=== PATIENT | female | born 1970 ===

== ENCOUNTER 2017-10-08 12:30 | Inpatient (IN) | payer MEDICAID, OTHER ==
[2017-10-08 13:16] VITALS: BMI 24.5
--- NOTE | 2017-10-08 13:18 | ED PDOC ---
HPI: General Adult Time Seen by Provider: 10/08/17 12:56 History Per: Patient History/Exam Limitations: no limitations Onset/Duration Of Symptoms: Days (x 14) Additional Complaint(s): Soledad Dalton is a 47 y/o female with history of HIV and unknown CD4C, who was sent by a mental health case manager from [facility] to this ED for evaluation of lab abnormalities after she has been discharge from there with pneumonia 2 weeks ago. Patient offers no medical complaints at this time. PMD: Dr. Wright Past Medical History Reviewed: Historical Data, Nursing Documentation, Vital Signs Vital Signs: Last Vital Signs Temp 98.2 F 10/11/17 08:31 Pulse 79 10/11/17 08:31 Resp 20 10/11/17 08:31 BP 114/68 10/11/17 08:31 Pulse Ox 99 10/11/17 08:31 - Medical History PMH: HIV, Pneumonia Other PMH: unknown CD4C - Surgical History Surgical History: No Surg Hx - Family History Family History: States: Unknown Family Hx - Social History Current smoker - smoking cessation education provided: No Alcohol: None Drugs: Denies - Home Medications Home Medications: Ambulatory Orders Medication Instructions Recorded levETIRAcetam [Keppra] 500 mg PO Q12 10/08/17 - Allergies Allergies/Adverse Reactions: Allergies Allergy/AdvReac Type Severity Reaction Status Date / Time No Known Allergies Allergy Verified 10/08/17 13:15 Review of Systems ROS Statement: Except As Marked, All Systems Reviewed And Found Negative Respiratory: Positive for: Cough (minimal) Physical Exam - Reviewed Nursing Documentation Reviewed: Yes Vital Signs Reviewed: Yes - Physical Exam Appears: Positive for: Non-toxic, No Acute Distress Head Exam: Positive for: ATRAUMATIC, NORMOCEPHALIC Skin: Positive for: Normal Color, Warm, Dry Eye Exam: Positive for: Normal appearance, EOMI, PERRL ENT: Positive for: Normal ENT Inspection Neck: Positive for: Normal, Supple Cardiovascular/Chest: Positive for: Regular Rate, Rhythm Respiratory: Positive for: Normal Breath Sounds. Negative for: Respiratory Distress Gastrointestinal/Abdominal: Positive for: Normal Exam, Soft. Negative for: Tenderness Back: Positive for: Normal Inspection. Negative for: L CVA Tenderness, R CVA Tenderness Extremity: Positive for: Normal ROM Neurologic/Psych: Positive for: Alert, Oriented - Laboratory Results Result Diagrams: 10/11/17 05:55 10/11/17 05:55 - Physician Consult Information Time Consulting Physican Contacted: 13:14 Physician Contacted: Matthieu Atkinson Outcome Of Conversation: Recommends acid-fast culture X 3, stool culture and Rifabutin, Doxycycline and Ethambutol. Medical Decision Making Medical Decision Making: Time: 1316 Initial Impression: MAC Initial Plan: --VBG Shock Panel --EKG --CMP --Urine --Urine dipstick --CBC --PTT --Prothrombin Time --Chest Portable (RAD) --Mycobacteria, PCR, RESP --Mycobacterium Blood Culture --Myambutol 900 mg PO --Mycobutin 300 mg PO --Blood Culture --Stool Culture --Urine Culture --Urinalysis Time: 1337 Patient is admitted to floor. Scribe Attestation: Documented by Alannah Christensen, acting as a scribe for Radha Contreras MD Provider Scribe Attestation: All medical record entries made by the Scribe were at my direction and personally dictated by me. I have reviewed the chart and agree that the record accurately reflects my personal performance of the history, physical exam, medical decision making, and the department course for this patient. I have also personally directed, reviewed, and agree with the discharge instructions and disposition. Disposition - Clinical Impression Clinical Impression: Mycobacterium avium complex, HIV (human immunodeficiency virus infection) - Disposition Disposition Time: 13:37 Condition: STABLE - Pt Status Changed To: Hospital Disposition Of: Inpatient - Admit Certification Admit to Inpatient:: After my assessment, the patient will require hospitalization for at least two midnights. This is because of the severity of symptoms shown, intensity of services needed, and/or the medical risk in this patient being treated as an outpatient. - POA Present On Arrival: None
[2017-10-08 14:31] LABS: BASO # 0.1 K/uL (0.0-0.2); BASO % 1.4 % (0.0-2.0); EOS % 0.5 % (0.0-4.0); HEMOGLOBIN 8.6 g/dL (12.0-16.0); LYMPH # 1.2 K/uL (1.0-4.3); LYMPH % 28.4 % (20.0-40.0); MEAN CELL VOLUME 86.1 fl (81.0-99.0); MEAN CORPUSCULAR HEMOGLOBIN 27.3 pg (27.0-31.0); MEAN CORPUSCULAR HGB CONC 31.7 g/dL (33.0-37.0); MEAN PLATELET VOLUME 8.1 fl (7.2-11.7); MONO # 0.5 K/uL (0.0-0.8); NEUT # 2.3 K/uL (1.8-7.0); NEUT % 56.7 % (50.0-75.0); NRBC % 0.1 % (0.0-0.0); RBC 3.16 Mil/uL (3.80-5.20); RED CELL DISTRIBUTION WIDTH 20.8 % (11.5-14.5); WHITE BLOOD COUNT 4.1 K/uL (4.8-10.8)
[2017-10-08 14:41] LABS: INR 1.1 (0.9-1.2); PROTHROMBIN TIME 12.7 Seconds (9.8-13.1)
[2017-10-08 14:42] LABS: ALB/GLOB RATIO 0.9 (1.0-2.1); ALBUMIN 3.1 g/dL (3.5-5.0); ALT/SGPT 25 U/L (9-52); AST/SGOT 27 U/L (14-36); BLOOD UREA NITROGEN 9 mg/dl (7-17); CALCIUM 8.6 mg/dL (8.4-10.2); GFR AFRICAN-AMERICAN > 60; GFR NON-AFRICAN AMERICAN > 60
[2017-10-08 15:46] LABS: VENOUS BLOOD GAS BASE EXCESS 5.6 mmol/L (0.0-2.0); VENOUS BLOOD GAS PCO2 45 mmHg (40-60); VENOUS BLOOD GAS PO2 42 mm/Hg (30-55); VENOUS BLOOD PH 7.44 (7.32-7.43)
--- NOTE | 2017-10-08 15:48 | CP.PCM.HP ---
History of Present Illness - History of Present Illness History of Present Illness: 47 y/o female with history of HIV and stroke, unknown CD4 count was sent by a machine adjuster leader case trim from [facility] to us for evaluation of lab abnormalities after she has been discharge from there with pneumonia 2 weeks ago. Patient reports feeling better but still c/o wet cough and sputum production sometimes white/yellow in color. Patient also reports she had an stroke 3 months ago with complete resolutions of symptoms. Associated weight loss in the last month (pt can't said how many pounds she lost) also c/o anorexia for the last 2 weeks. Otherwise she denies sob, hemoptysis, wheezing, chest pain, palpitations, rashes , abdominal pain, constipation or diarrhea, no headache, seizures, blurred vision. No urinary symptoms. Patient was diagnosed with HIV 15 years ago and have been off treatment for more than 4 years due to insurance issues. Patient reports that recently she got the [place] emergency department and is scheduled for her first visit at [facility]. PMD: none at this time PMH: stroke 3months ago, HIV FMH: denies PSH: Meds: keppra 500 mg BID NKDA SH: denies smoking, etoh, drugs live with her son in an apt ED course: VS: T98.5, BP 127/74, HR 96, RR 18 sat 99% RA. PE: Resp: cta, CVS: RRR, + s1 s2, ABD: soft no tender Labs: CBC: 4.1<8.6/27.2>525, CMP: wnl, PT/INR 12.7/1.1, lactate 1.0 Meds: Rifabutin, Doxycycline and Ethambutol once Present on Admission - Present on Admission Any Indicators Present on Admission: No Review of Systems - Review of Systems All systems: reviewed and no additional remarkable complaints except (HPI) Past Patient History - Past Social History Alcohol: None Drugs: Denies - CARDIAC Hx Cardiac Disorders: No - PULMONARY Hx Pneumonia: Yes - NEUROLOGICAL HX Cerebrovascular Accident: Yes Hx Seizures: Yes - RENAL Hx Chronic Kidney Disease: No - ENDOCRINE/METABOLIC Hx Endocrine Disorders: No - HEMATOLOGICAL/ONCOLOGICAL Hx Human Immunodeficiency Virus (HIV): Yes - INTEGUMENTARY Hx Dermatological Problems: No - MUSCULOSKELETAL/RHEUMATOLOGICAL Hx Musculoskeletal Disorders: No - GASTROINTESTINAL Hx Gastrointestinal Disorders: No - GENITOURINARY/GYNECOLOGICAL Hx Genitourinary Disorders: No - PSYCHIATRIC Hx Psychophysiologic Disorder: No Hx Substance Use: No - SURGICAL HISTORY Hx Surgeries: No - ANESTHESIA Hx Anesthesia: No Hx Anesthesia Reactions: No Hx Malignant Hyperthermia: No Meds Allergies/Adverse Reactions: Allergies Allergy/AdvReac Type Severity Reaction Status Date / Time No Known Allergies Allergy Verified 10/08/17 13:15 Physical Exam - Constitutional Appears: No Acute Distress, Older Than Stated Age - Head Exam Head Exam: NORMAL INSPECTION - Eye Exam Eye Exam: EOMI, PERRL - Respiratory Exam Respiratory Exam: Clear to Auscultation Bilateral, NORMAL BREATHING PATTERN. absent: Rales, Wheezes - Cardiovascular Exam Cardiovascular Exam: REGULAR RHYTHM, +S1, +S2. absent: Tachycardia - GI/Abdominal Exam GI & Abdominal Exam: Normal Bowel Sounds, Soft. absent: Distended, Tenderness - Extremities Exam Extremities exam: Negative for: calf tenderness - Neurological Exam Neurological exam: Alert, CN II-XII Intact, Oriented x3 - Psychiatric Exam Psychiatric exam: Normal Mood - Skin Skin Exam: Dry, Warm Results - Vital Signs Recent Vital Signs: Last Vital Signs Temp 98.5 F 10/08/17 13:12 Pulse 96 H 10/08/17 13:12 Resp 18 10/08/17 13:12 BP 127/74 10/08/17 13:12 Pulse Ox 99 10/08/17 13:12 - Labs Result Diagrams: 10/08/17 14:15 10/08/17 14:15 Labs: Laboratory Results - last 24 hr 10/08/17 10/08/17 10/08/17 14:15 14:15 14:15 WBC 4.1 L RBC 3.16 L Hgb 8.6 L Hct 27.2 L MCV 86.1 MCH 27.3 MCHC 31.7 L RDW 20.8 H Plt Count 525 H MPV 8.1 Neut % (Auto) 56.7 Lymph % (Auto) 28.4 Graham % (Auto) 13.0 H Eos % (Auto) 0.5 Baso % (Auto) 1.4 Neut # (Auto) 2.3 Lymph # (Auto) 1.2 Graham # (Auto) 0.5 Eos # (Auto) 0.0 Baso # (Auto) 0.1 PT 12.7 INR 1.1 APTT 29.0 pO2 VBG pH VBG pCO2 VBG HCO3 VBG Total CO2 VBG O2 Sat (Calc) VBG Base Excess VBG Potassium Glucose Lactate FiO2 Sodium 144 Potassium 3.8 Chloride 106 Carbon Dioxide 25 Anion Gap 17 BUN 9 Creatinine 0.4 L Est GFR ( Amer) > 60 Est GFR (Non-Af Amer) > 60 Random Glucose 101 Calcium 8.6 Total Bilirubin 0.4 AST 27 ALT 25 Alkaline Phosphatase 73 Total Protein 6.3 Albumin 3.1 L Globulin 3.2 Albumin/Globulin Ratio 0.9 L Venous Blood Potassium 10/08/17 15:37 WBC RBC Hgb Hct MCV MCH MCHC RDW Plt Count MPV Neut % (Auto) Lymph % (Auto) Graham % (Auto) Eos % (Auto) Baso % (Auto) Neut # (Auto) Lymph # (Auto) Graham # (Auto) Eos # (Auto) Baso # (Auto) PT INR APTT pO2 42 VBG pH 7.44 H VBG pCO2 45 VBG HCO3 28.8 VBG Total CO2 32.0 H VBG O2 Sat (Calc) 68.9 H VBG Base Excess 5.6 H VBG Potassium 3.6 Glucose 94 Lactate 1.0 FiO2 21.0 Sodium 140.0 Potassium Chloride 109.0 H Carbon Dioxide Anion Gap BUN Creatinine Est GFR ( Amer) Est GFR (Non-Af Amer) Random Glucose Calcium Total Bilirubin AST ALT Alkaline Phosphatase Total Protein Albumin Globulin Albumin/Globulin Ratio Venous Blood Potassium 3.6 Assessment & Plan - Assessment and Plan (Free Text) Assessment: 47 yo F patient w/ PMH of HIV/AIDS, stroke admitted due to cough, weight loss, anorexia to r/o suspected MAC. Plan: 1- Cough, weight loss, anorexia r/o MAC - Admit to Med/Surg - Isolation - Afebrile, no leukocytosis - CXR: no active lung disease - f/u CD4/viral load - Mycobacteria PCR, CX, stain - F/U blood, urine and stool cx - ID consult placed Dr Atkinson, recs appreciated. - s/p ethambutol 900 mg once rifampin 600 mg once avelox 400 mg once 2- HIV/AIDS - non complaint w/medicines - off medicines for 4 years - f/u CD4/viral load 3-H/O stroke -c/w keppra 500 mg Q12H - Head CT 10/08: cortical loss at solitary gyrus on L frontal lobe reflecting prior local infarct or insult. Remainder brain is normal. 4- DVT prophylaxis - lovenox 40mg SC daily
[2017-10-08 15:51] LABS: SQUAMOUS EPITHIAL 1 /hpf (0-5); URINE BACTERIA RARE (<OCC); URINE BILIRUBIN NEGATIVE (NEGATIVE); URINE BLOOD NEGATIVE (NEGATIVE); URINE CLARITY CLOUDY (Clear); URINE COLOR AMBER (YELLOW); URINE GLUCOSE (UA) NEG (Normal); URINE LEUKOCYTE ESTERASE SMALL Leu/uL (Negative); URINE PROTEIN NEGATIVE (NEGATIVE); URINE UROBILINOGEN 0.2-1.0 mg/dL (0.2-1.0)
--- NOTE | 2017-10-08 16:08 | RAD ---
HISTORY: Cough COMPARISON: No prior. FINDINGS: LUNGS: No active pulmonary disease. PLEURA: No significant pleural effusion identified, no pneumothorax apparent. CARDIOVASCULAR: Normal. OSSEOUS STRUCTURES: No significant abnormalities. VISUALIZED UPPER ABDOMEN: Normal. OTHER FINDINGS: None. IMPRESSION: No active disease.
--- NOTE | 2017-10-08 17:05 | CT ---
PROCEDURE: CT HEAD WITHOUT CONTRAST. HISTORY: previous h/o stroke, brain mass COMPARISON: None available. TECHNIQUE: Axial computed tomography images were obtained through the head/brain without intravenous contrast. Radiation dose: Total exam DLP = 695.62 mGy-cm. This CT exam was performed using one or more of the following dose reduction techniques: Automated exposure control, adjustment of the mA and/or kV according to patient size, and/or use of iterative reconstruction technique. FINDINGS: HEMORRHAGE: No intracranial hemorrhage. BRAIN: Trace cystic encephalomalacia is appreciated at a solitary gyrus the left frontal lobe superolaterally. Remaining villafana-white matter structure is within normal limits in overall density including the cerebellum and brainstem. Consider possible chronic lacune. There is no prior comparison available. Remainder the brain is unremarkable including the midline brain anatomy. No suspicious extra-axial collection identified throughout. Sulci and cisterns are unremarkable appearing. VENTRICLES: Unremarkable. No hydrocephalus. CALVARIUM: Unremarkable. PARANASAL SINUSES: Unremarkable as visualized. No significant inflammatory changes. MASTOID AIR CELLS: Unremarkable as visualized. No inflammatory changes. OTHER FINDINGS: None. IMPRESSION: Minimal lucency includes cortical loss at a solitary gyrus on the left frontal lobe superolaterally history reflecting prior local infarct or other insult. No prior comparison available. Remainder the brain normal. Follow-up CT or MRI are available as clinically warranted. If brain mass is suspected clinically then follow-up MRI without contrast is advised.
--- NOTE | 2017-10-08 19:03 | CP.PCM.PN ---
Subjective - Date & Time of Evaluation Date of Evaluation: 10/08/17 Time of Evaluation: 19:00 - Subjective Subjective: i d note discussed c ER PHYSICIAN,Pharmacy,resident initial orders agreed with medications for mac ordered full consult tomorrow Objective - Vital Signs/Intake and Output Vital Signs (last 24 hours): Temp Pulse Resp BP Pulse Ox 98.4 F 91 H 20 104/69 98 10/08/17 16:53 10/08/17 16:53 10/08/17 17:38 10/08/17 16:53 10/08/17 17:38 - Medications Medications: Current Medications Enoxaparin Sodium (Lovenox) 40 mg SC DAILY [facility] PRN Reason: Protocol Ethambutol HCl (Myambutol) 1,200 mg PO DAILY [facility] PRN Reason: Protocol Levetiracetam (Keppra) 500 mg PO Q12 [facility] Moxifloxacin HCl (Avelox) 400 mg PO DAILY [facility] PRN Reason: Protocol - Labs Labs: 10/08/17 14:15 10/08/17 14:15 PT 12.7 Seconds (9.8-13.1) 10/08/17 14:15 INR 1.1 (0.9-1.2) 10/08/17 14:15 APTT 29.0 Seconds (25.6-37.1) 10/08/17 14:15
[2017-10-09] MEDS: Pneumococcal 23-Valent Vaccine IM ONE ×2 (06:55→12:46)
[2017-10-09 07:17] LABS: BASO # 0.1 K/uL (0.0-0.2); BASO % 2.3 % (0.0-2.0); EOS % 0.6 % (0.0-4.0); HEMOGLOBIN 8.4 g/dL (12.0-16.0); LYMPH # 1.1 K/uL (1.0-4.3); MEAN CELL VOLUME 86.2 fl (81.0-99.0); MEAN CORPUSCULAR HEMOGLOBIN 28.2 pg (27.0-31.0); MEAN CORPUSCULAR HGB CONC 32.7 g/dL (33.0-37.0); MEAN PLATELET VOLUME 8.4 fl (7.2-11.7); MONO # 0.6 K/uL (0.0-0.8); MONO % 14.2 % (0.0-10.0); NEUT # 2.3 K/uL (1.8-7.0); NEUT % 56.9 % (50.0-75.0); NRBC % 0.4 % (0.0-0.0); RBC 2.98 Mil/uL (3.80-5.20); RED CELL DISTRIBUTION WIDTH 20.6 % (11.5-14.5); WHITE BLOOD COUNT 4.1 K/uL (4.8-10.8)
[2017-10-09 07:31] LABS: ALB/GLOB RATIO 0.9 (1.0-2.1); ALBUMIN 2.8 g/dL (3.5-5.0); ALT/SGPT 26 U/L (9-52); AST/SGOT 24 U/L (14-36); BLOOD UREA NITROGEN 8 mg/dl (7-17); CALCIUM 8.3 mg/dL (8.4-10.2); GFR AFRICAN-AMERICAN > 60; GFR NON-AFRICAN AMERICAN > 60; HDL CHOLESTEROL 25 MG/DL (30-70)
[2017-10-09 07:41] LABS: LDL CHOLESTEROL 116 mg/dL (0-129)
[2017-10-09] MEDS: Enoxaparin 40 mg Syringe SC SCH (09:59)
--- NOTE | 2017-10-09 11:02 | CP.PCM.PN ---
Subjective - Date & Time of Evaluation Date of Evaluation: 10/09/17 Time of Evaluation: 08:00 - Subjective Subjective: Patient seen and examined this morning, no acute overnight events, reports feeling better, less cough than yesterday, no sob. Afebrile. Objective - Vital Signs/Intake and Output Vital Signs (last 24 hours): Temp Pulse Resp BP Pulse Ox 98.3 F 74 20 110/68 99 10/09/17 08:17 10/09/17 08:17 10/09/17 08:17 10/09/17 08:17 10/09/17 08:17 - Medications Medications: Current Medications Enoxaparin Sodium (Lovenox) 40 mg SC DAILY [facility] PRN Reason: Protocol Last Admin: 10/09/17 09:59 Dose: 40 mg Ethambutol HCl (Myambutol) 1,200 mg PO DAILY [facility] PRN Reason: Protocol Last Admin: 10/09/17 10:00 Dose: 1,200 mg Ferrous Sulfate (Feosol) 325 mg PO BID [facility] Levetiracetam (Keppra) 500 mg PO Q12 [facility] Last Admin: 10/09/17 10:00 Dose: 500 mg Moxifloxacin HCl (Avelox) 400 mg PO DAILY [facility] PRN Reason: Protocol Last Admin: 10/09/17 10:00 Dose: 400 mg Potassium Chloride (K-Dur 20 Meq Er Tab) 20 meq PO DAILY [facility] Stop: 10/13/17 23:59 Rifabutin (Mycobutin) 150 mg PO BID [facility] PRN Reason: Protocol - Labs Labs: 10/09/17 05:25 10/09/17 05:25 PT 12.7 Seconds (9.8-13.1) 10/08/17 14:15 INR 1.1 (0.9-1.2) 10/08/17 14:15 APTT 29.0 Seconds (25.6-37.1) 10/08/17 14:15 - Constitutional Appears: No Acute Distress - Head Exam Head Exam: NORMAL INSPECTION - Eye Exam Eye Exam: EOMI, PERRL - Respiratory Exam Respiratory Exam: Clear to Ausculation Bilateral, NORMAL BREATHING PATTERN. absent: Chest Wall Tenderness, Rales, Wheezes - Cardiovascular Exam Cardiovascular Exam: REGULAR RHYTHM, +S1, +S2. absent: Tachycardia - GI/Abdominal Exam GI & Abdominal Exam: Soft, Normal Bowel Sounds. absent: Tenderness - Extremities Exam Extremities Exam: absent: Calf Tenderness - Neurological Exam Neurological Exam: Alert, Awake, Oriented x3 - Psychiatric Exam Psychiatric exam: Normal Mood - Skin Skin Exam: Dry, Warm Assessment and Plan - Assessment and Plan (Free Text) Assessment: 47 yo F patient w/ PMH of HIV/AIDS, stroke admitted due to cough, weight loss, anorexia to r/o suspected MAC. Plan: 1- Cough, weight loss, anorexia r/o MAC - Isolation precautions - Afebrile, no leukocytosis - CXR: no active lung disease - f/u CD4/viral load - Mycobacteria PCR, CX, stain - F/U blood, urine and stool cx - ID consult placed Dr Atkinson, recs appreciated. -c/w ethambutol 1200 mg PO daily -rifabutin 150 mg PO BID -avelox 400 mg PO daily 2- HIV/AIDS - off medicines for 4 years - f/u CD4/viral load 3- Anemia, stable, normocytic - MCV wnl, RDW elevated - f/u iron studies 4- Thrombocytosis - likely reactive 2/2 to infection - will monitor. 5- Hypokalemia - K- 3.3 - KCL 20meq PO - CMP tomorrow 6-H/O stroke - c/w keppra 500 mg Q12H - Head CT 10/08: cortical loss at solitary gyrus on L frontal lobe reflecting prior local infarct or insult. Remainder brain is normal. 7- DVT prophylaxis - lovenox 40mg SC daily
--- NOTE | 2017-10-09 11:40 | CARD ---
APPROVED REPORT EKG Measurement Heart [id number] OR [id number] <Conclusion> Normal sinus rhythm Anterior infarct, age undetermined Abnormal ECG
[2017-10-09] MEDS: Potassium Chloride 20 mEq ER Tab PO SCH (11:45)
[2017-10-10 07:36] LABS: IRON 47 ug/dL (37-170)
[2017-10-10 07:47] LABS: % IRON SATURATION 16 % (20-55); TOTAL IRON BINDING CAPACITY 283 ug/dL (250-450)
[2017-10-10] MEDS: Potassium Chloride 20 mEq ER Tab PO SCH (09:09)
[2017-10-10] MEDS: Enoxaparin 40 mg Syringe SC SCH (09:10)
--- NOTE | 2017-10-10 10:01 | CP.PCM.PN ---
Subjective - Date & Time of Evaluation Date of Evaluation: 10/10/17 Time of Evaluation: 09:20 - Subjective Subjective: Pt. seen at bedside eating cereal. Pt. with no complaints at this time. Overnight events reviewed. Pt. denies any headache, weakness, dyspnea, fever, chills, chest pain, abdominal pain, nause, or vomiting. Records from [facility] brought in by son and reviewed including discharge summary from 08/18/17. Current documents do not include the most recent admission pt. had at [facility]. Records reviewed in detail with co-resident Linda Das and Alice Cat in person at [address] [place] [address]. Pt.'s son also called to verify that patient had not had any other admissions to [facility] or any other Hospital other then the above mentioned. Pt. son's at this time with no records from the patient's most recent admission from August 2017. [facility] lab called in the presence of co-resident Linda Das and Kate from [facility] contacted. Kate reports most recent admission of patient shows +HIV result with no other significant findings. Will request medical records to be faxed to [phone] after completing medical release form with patient's consent in the a.m. including cultures. [phone] [employer] channel marketing manager at [facility] [phone] Karime Co-channel marketing manager at [facility] [phone] (Microbiology Lab) Subsequently Dr. Santo contacted on cell phone and made aware of above discussion with Kate from [facility] with co-resident Linda Das present and pt. progress and plan discussed. Objective - Vital Signs/Intake and Output Vital Signs (last 24 hours): Temp Pulse Resp BP Pulse Ox 98.2 F 92 H 20 105/67 99 10/10/17 08:11 10/10/17 08:11 10/10/17 08:11 10/10/17 08:11 10/10/17 08:11 - Medications Medications: Current Medications Enoxaparin Sodium (Lovenox) 40 mg SC DAILY [facility] PRN Reason: Protocol Last Admin: 10/10/17 09:10 Dose: 40 mg Ethambutol HCl (Myambutol) 1,200 mg PO DAILY [facility] PRN Reason: Protocol Last Admin: 10/10/17 09:10 Dose: 1,200 mg Ferrous Sulfate (Feosol) 325 mg PO BID [facility] Last Admin: 10/10/17 09:09 Dose: 325 mg Levetiracetam (Keppra) 500 mg PO Q12 [facility] Last Admin: 10/10/17 09:08 Dose: 500 mg Moxifloxacin HCl (Avelox) 400 mg PO DAILY [facility] PRN Reason: Protocol Last Admin: 10/10/17 09:09 Dose: 400 mg Potassium Chloride (K-Dur 20 Meq Er Tab) 20 meq PO DAILY [facility] Stop: 10/13/17 23:59 Last Admin: 10/10/17 09:09 Dose: 20 meq Rifabutin (Mycobutin) 150 mg PO BID [facility] PRN Reason: Protocol Last Admin: 10/10/17 09:09 Dose: 150 mg - Labs Labs: 10/09/17 05:25 10/09/17 05:25 PT 12.7 Seconds (9.8-13.1) 10/08/17 14:15 INR 1.1 (0.9-1.2) 10/08/17 14:15 APTT 29.0 Seconds (25.6-37.1) 10/08/17 14:15 - Constitutional Appears: Non-toxic, No Acute Distress - Eye Exam Eye Exam: Normal appearance. absent: Scleral icterus - ENT Exam ENT Exam: Mucous Membranes Moist - Neck Exam Neck Exam: Normal Inspection - Respiratory Exam Respiratory Exam: Clear to Ausculation Bilateral, NORMAL BREATHING PATTERN - Cardiovascular Exam Cardiovascular Exam: REGULAR RHYTHM, +S1, +S2 - GI/Abdominal Exam GI & Abdominal Exam: Soft. absent: Tenderness - Extremities Exam Extremities Exam: Normal Inspection. absent: Pedal Edema - Neurological Exam Neurological Exam: Alert, Awake, Oriented x3 - Psychiatric Exam Psychiatric exam: Normal Affect, Normal Mood Assessment and Plan - Assessment and Plan (Free Text) Assessment: 47 y.o. female patient with HIV/AIDS admitted for weight loss, anorexia, and suspected MAC infection awaiting cultures 1- HIV/AIDS with suspected MAC infection Pt. progress discussed with Dr. Santo including labs, imaging, and records from [facility]. - Continue Isolation precautions - f/u CD4/viral load & HIV viral load- Pending - Mycobacteria PCR, CX, stain - blood, urine and stool cx still Pending - ID consult placed Dr Atkinson, recs appreciated. -c/w ethambutol 1200 mg PO daily -c/w rifabutin 150 mg PO BID -c/w avelox 400 mg PO daily -CMV IgG & IgM, Toxoplasmosis IgG & IgM, HLA-B57- pending -MRI w/wo contrast as per discussion with I.D. Dr. Santo- pending -Will start Bactrim DS for PCP prophylaxis based on CD4 count of 109 from review of labs based from [facility] -Will consider starting LOPEZ therapy 2- Anemia, stable, normocytic - MCV wnl, RDW elevated - f/u iron studies 3- Thrombocytosis - likely reactive 2/2 to infection - will monitor. 4- Hypokalemia- 3.3 - Continue KCL 20meq PO - CMP tomorrow 5-H/O stroke - c/w keppra 500 mg Q12H - Head CT 10/08: cortical loss at solitary gyrus on L frontal lobe reflecting prior local infarct or insult. Remainder brain is normal - MRI with and without contrast ordered as per discussion with I.D. given hx of Toxoplasmosis and questionable incomplete history 6- DVT prophylaxis - lovenox 40mg SC daily
[2017-10-10 16:40] LABS: SQUAMOUS EPITHIAL < 1 /hpf (0-5); URINE BACTERIA RARE (<OCC); URINE BILIRUBIN NEGATIVE (NEGATIVE); URINE BLOOD NEGATIVE (NEGATIVE); URINE CALCIUM OXALATE CRYSTALS MANY /hpf (<OCC); URINE CLARITY CLOUDY (Clear); URINE COLOR AMBER (YELLOW); URINE GLUCOSE (UA) NEG (Normal); URINE LEUKOCYTE ESTERASE NEG Leu/uL (Negative); URINE PROTEIN NEGATIVE (NEGATIVE); URINE UROBILINOGEN 0.2-1.0 mg/dL (0.2-1.0)
--- NOTE | 2017-10-10 17:40 | CP.PCM.PN ---
Subjective - Date & Time of Evaluation Date of Evaluation: 10/10/17 Time of Evaluation: 17:14 - Subjective Subjective: I D NOTE RECORDS FROM [facility] HAVE BEEN OBTAINED AND HAVE DISCUSSED C FP RESIDENTS ON ADMISSION HERE ,WAS TOLD BY ER PHYSICIAN THAT SHE HAD POSITIVE GI(STOOL) CULTURES CAITLIN(MAC0 SHE WAS STARTED ON AVELOX/RIFABUTIN/ETHAMBUTAL TODAYs RESULTS SHOW that SHE HAD MRI c RING ENHANCING LESION, QUESTIONABLE CMV SHE IS ON GANCICLOVIR ASKED RESIDENTS TO OBTAIN ADDITIONAL LABS SULFADIAZINE AND PYRIMETHAMINE AWAIT NEUROLOGY EVALUATION Objective - Vital Signs/Intake and Output Vital Signs (last 24 hours): Temp Pulse Resp BP Pulse Ox 99.8 F H 90 20 108/71 96 10/10/17 16:12 10/10/17 16:12 10/10/17 16:12 10/10/17 16:12 10/10/17 16:12 - Medications Medications: Current Medications Enoxaparin Sodium (Lovenox) 40 mg SC DAILY [facility] PRN Reason: Protocol Last Admin: 10/10/17 09:10 Dose: 40 mg Ethambutol HCl (Myambutol) 1,200 mg PO DAILY [facility] PRN Reason: Protocol Last Admin: 10/10/17 09:10 Dose: 1,200 mg Levetiracetam (Keppra) 500 mg PO Q12 [facility] Last Admin: 10/10/17 09:08 Dose: 500 mg Moxifloxacin HCl (Avelox) 400 mg PO DAILY [facility] PRN Reason: Protocol Last Admin: 10/10/17 09:09 Dose: 400 mg Potassium Chloride (K-Dur 20 Meq Er Tab) 20 meq PO DAILY [facility] Stop: 10/13/17 23:59 Last Admin: 10/10/17 09:09 Dose: 20 meq Rifabutin (Mycobutin) 150 mg PO BID [facility] PRN Reason: Protocol Last Admin: 10/10/17 16:43 Dose: 150 mg - Labs Labs: 10/09/17 05:25 10/09/17 05:25 PT 12.7 Seconds (9.8-13.1) 10/08/17 14:15 INR 1.1 (0.9-1.2) 10/08/17 14:15 APTT 29.0 Seconds (25.6-37.1) 10/08/17 14:15
[2017-10-11 06:49] LABS: BASO # 0.1 K/uL (0.0-0.2); BASO % 1.6 % (0.0-2.0); EOS % 0.6 % (0.0-4.0); HEMOGLOBIN 9.5 g/dL (12.0-16.0); LYMPH % 38.6 % (20.0-40.0); MEAN CELL VOLUME 87.7 fl (81.0-99.0); MEAN CORPUSCULAR HEMOGLOBIN 28.3 pg (27.0-31.0); MEAN CORPUSCULAR HGB CONC 32.3 g/dL (33.0-37.0); MEAN PLATELET VOLUME 7.9 fl (7.2-11.7); MONO # 0.8 K/uL (0.0-0.8); MONO % 15.4 % (0.0-10.0); NEUT # 2.2 K/uL (1.8-7.0); NEUT % 43.8 % (50.0-75.0); NRBC % 0.2 % (0.0-0.0); RBC 3.35 Mil/uL (3.80-5.20); RED CELL DISTRIBUTION WIDTH 20.5 % (11.5-14.5); WHITE BLOOD COUNT 5.1 K/uL (4.8-10.8)
[2017-10-11 07:30] LABS: ALBUMIN 3.2 g/dL (3.5-5.0); ALT/SGPT 23 U/L (9-52); AST/SGOT 28 U/L (14-36); BLOOD UREA NITROGEN 6 mg/dl (7-17); GFR AFRICAN-AMERICAN > 60; GFR NON-AFRICAN AMERICAN > 60
[2017-10-11 07:53] LABS: FERRITIN 32.6 ng/Ml (6.24-137.0)
[2017-10-11] MEDS ORDERED: Tmp-Smz 800 mg-160 mg DS Tab PO SCH ×2 (09:00)
[2017-10-11 09:23] LABS: HEPATITIS B SURFACE AG Negative (NEGATIVE)
[2017-10-11 09:29] LABS: HEPATITIS A IGM NEGATIVE (NEGATIVE); HEPATITIS B CORE AB NEGATIVE (NEGATIVE)
[2017-10-11] MEDS: Potassium Chloride 20 mEq ER Tab PO SCH (09:30)
[2017-10-11] MEDS: Enoxaparin 40 mg Syringe SC SCH (09:31)
[2017-10-11 09:40] LABS: HEPATITIS C ANTIBODY NEGATIVE (NEGATIVE)
--- NOTE | 2017-10-11 10:11 | CP.PCM.PN ---
Subjective - Date & Time of Evaluation Date of Evaluation: 10/11/17 Time of Evaluation: 10:11 - Subjective Subjective: Patient seen at bedside this morning during rounding, pt with no complaints at this time. No overnight events. She denies any headache, weakness, dyspnea, chills, chest pain, abdominal pain, nausea, or vomiting. Afebrile. Objective - Vital Signs/Intake and Output Vital Signs (last 24 hours): Temp Pulse Resp BP Pulse Ox 98.2 F 79 20 114/68 99 10/11/17 08:31 10/11/17 08:31 10/11/17 08:31 10/11/17 08:31 10/11/17 08:31 - Medications Medications: Current Medications Enoxaparin Sodium (Lovenox) 40 mg SC DAILY KISHAN PRN Reason: Protocol Last Admin: 10/11/17 09:31 Dose: 40 mg Ethambutol HCl (Myambutol) 1,200 mg PO DAILY KISHAN PRN Reason: Protocol Last Admin: 10/11/17 09:31 Dose: 1,200 mg Levetiracetam (Keppra) 500 mg PO Q12 KISHAN Last Admin: 10/11/17 09:30 Dose: 500 mg Moxifloxacin HCl (Avelox) 400 mg PO DAILY KISHAN PRN Reason: Protocol Last Admin: 10/11/17 09:29 Dose: 400 mg Potassium Chloride (K-Dur 20 Meq Er Tab) 20 meq PO DAILY KISHAN Stop: 10/13/17 23:59 Last Admin: 10/11/17 09:30 Dose: 20 meq Rifabutin (Mycobutin) 150 mg PO BID KISHAN PRN Reason: Protocol Last Admin: 10/11/17 09:31 Dose: 150 mg Trimethoprim/Sulfamethoxazole (Bactrim Ds Tab) 1 tab PO DAILY KISHAN PRN Reason: Protocol Last Admin: 10/11/17 09:30 Dose: 1 tab - Labs Labs: 10/11/17 05:55 10/11/17 05:55 PT 12.7 Seconds (9.8-13.1) 10/08/17 14:15 INR 1.1 (0.9-1.2) 10/08/17 14:15 APTT 29.0 Seconds (25.6-37.1) 10/08/17 14:15 - Constitutional Appears: No Acute Distress - Head Exam Head Exam: NORMAL INSPECTION - Eye Exam Eye Exam: EOMI, PERRL - ENT Exam ENT Exam: Mucous Membranes Moist - Respiratory Exam Respiratory Exam: Clear to Ausculation Bilateral, NORMAL BREATHING PATTERN. absent: Rales, Wheezes - Cardiovascular Exam Cardiovascular Exam: REGULAR RHYTHM, +S1, +S2. absent: Tachycardia - GI/Abdominal Exam GI & Abdominal Exam: Soft, Normal Bowel Sounds. absent: Distended, Tenderness - Extremities Exam Extremities Exam: Calf Tenderness - Neurological Exam Neurological Exam: Alert, Awake, CN II-XII Intact, Oriented x3 - Psychiatric Exam Psychiatric exam: Normal Affect - Skin Skin Exam: Dry, Warm Assessment and Plan - Assessment and Plan (Free Text) Assessment: 47 yo female patient with HIV/AIDS admitted for weight loss, anorexia, and suspected MAC infection awaiting cultures. Plan: 1- HIV/AIDS with suspected MAC infection - Continue Isolation precautions - f/u CD4/viral load & HIV viral load- Pending - Mycobacteria PCR pending. - Mycobacteria CX, stain negative - blood cx negative, urine cx negative, and stool cx negative. - ID on board chris Aragon appreciated. - c/w ethambutol 1200 mg PO daily - c/w rifabutin 150 mg PO BID - c/w avelox 400 mg PO daily - CMV IgG & IgM, Toxoplasmosis IgG & IgM, HLA-B57- pending - Brain MRI w/wo: tiny ring-enhacing lesion very faintly identified at the area of edema on L frontal lobe potentially reflecting toxoplasmosis infection. - c/w Bactrim DS for PCP prophylaxis based on CD4 count of 109 from review of labs based from [facility] - Will consider starting LOPEZ therapy 2- Anemia, stable, normocytic - MCV wnl, RDW elevated - Iron 47, TIBC 283, %sat 16 (low), ferritin 32.6 3- Thrombocytosis - likely reactive 2/2 to infection - will monitor. 4- Hypokalemia, resolved - K 3.6 - will monitor 5-H/O stroke - Head CT 10/08: cortical loss at solitary gyrus on L frontal lobe reflecting prior local infarct or insult. Remainder brain is normal. - Neuro Dr Forest perez appreciated: - start ASA 81 mg daily - Echo r/o possible embolic cause of stroke (valvular disease) - c/w keppra 500 mg Q12H 6- DVT prophylaxis - lovenox 40mg SC daily
[2017-10-11] MEDS ORDERED: Gadodiamide 287 MG/ML VIAL (15ML) IV ONE (10:36)
--- NOTE | 2017-10-11 12:09 | CP.PCM.CON ---
History of Present Illness - History of Present Illness History of Present Illness: Neurology Consultation Note: Mrs. Triston Garcia is a 47-year-old woman with a past medical history of HIV, prior ischemic stroke, seizure disorder, pneumonia two weeks ago, who is admitted for MAC and lab abnormalities. There is a concern of toxoplasmosis and she had a stroke about 3 months ago, with no remaining focal deficits. Neurology was consulted to assist with the management and care. Review of Systems - Review of Systems All systems: reviewed and no additional remarkable complaints except Past Patient History - Past Medical History & Family History Past Medical History?: Yes - Past Social History Alcohol: None Drugs: Denies - CARDIAC Hx Cardiac Disorders: No - PULMONARY Hx Pneumonia: Yes - NEUROLOGICAL HX Cerebrovascular Accident: Yes Hx Seizures: Yes - RENAL Hx Chronic Kidney Disease: No - ENDOCRINE/METABOLIC Hx Endocrine Disorders: No - HEMATOLOGICAL/ONCOLOGICAL Hx Human Immunodeficiency Virus (HIV): Yes - INTEGUMENTARY Hx Dermatological Problems: No - MUSCULOSKELETAL/RHEUMATOLOGICAL Hx Musculoskeletal Disorders: No - GASTROINTESTINAL Hx Gastrointestinal Disorders: No - GENITOURINARY/GYNECOLOGICAL Hx Genitourinary Disorders: No - PSYCHIATRIC Hx Psychophysiologic Disorder: No Hx Substance Use: No - SURGICAL HISTORY Hx Surgeries: No - ANESTHESIA Hx Anesthesia: No Hx Anesthesia Reactions: No Hx Malignant Hyperthermia: No Meds Allergies/Adverse Reactions: Allergies Allergy/AdvReac Type Severity Reaction Status Date / Time No Known Allergies Allergy Verified 10/08/17 13:15 - Medications Medications: Current Medications Aspirin (Ecotrin) 81 mg PO DAILY [facility] Enoxaparin Sodium (Lovenox) 40 mg SC DAILY KISHAN PRN Reason: Protocol Last Admin: 10/11/17 09:31 Dose: 40 mg Ethambutol HCl (Myambutol) 1,200 mg PO DAILY KISHAN PRN Reason: Protocol Last Admin: 10/11/17 09:31 Dose: 1,200 mg Levetiracetam (Keppra) 500 mg PO Q12 KISHAN Last Admin: 10/11/17 09:30 Dose: 500 mg Moxifloxacin HCl (Avelox) 400 mg PO DAILY KISHAN PRN Reason: Protocol Last Admin: 10/11/17 09:29 Dose: 400 mg Potassium Chloride (K-Dur 20 Meq Er Tab) 20 meq PO DAILY KISHAN Stop: 10/13/17 23:59 Last Admin: 10/11/17 09:30 Dose: 20 meq Rifabutin (Mycobutin) 150 mg PO BID KISHAN PRN Reason: Protocol Last Admin: 10/11/17 09:31 Dose: 150 mg Trimethoprim/Sulfamethoxazole (Bactrim Ds Tab) 1 tab PO DAILY KISHAN PRN Reason: Protocol Last Admin: 10/11/17 09:30 Dose: 1 tab Physical Exam - Constitutional Appears: Well - Head Exam Head Exam: ATRAUMATIC, NORMAL INSPECTION, NORMOCEPHALIC - Eye Exam Eye Exam: EOMI, Normal appearance, PERRL - Neck Exam Neck exam: Positive for: Normal Inspection - Respiratory Exam Respiratory Exam: Clear to Auscultation Bilateral, NORMAL BREATHING PATTERN - Cardiovascular Exam Cardiovascular Exam: REGULAR RHYTHM - GI/Abdominal Exam GI & Abdominal Exam: Normal Bowel Sounds, Soft. absent: Tenderness - Neurological Exam Neurological exam: Alert, CN II-XII Intact, Normal Gait, Oriented x3, Reflexes Normal Additional comments: NIHSS is 0 - Psychiatric Exam Psychiatric exam: Normal Affect, Normal Mood Results - Vital Signs Recent Vital Signs: Last Vital Signs Temp 98.2 F 10/11/17 08:31 Pulse 79 10/11/17 08:31 Resp 20 10/11/17 08:31 BP 114/68 10/11/17 08:31 Pulse Ox 99 10/11/17 08:31 - Labs Result Diagrams: 10/11/17 05:55 10/11/17 05:55 Labs: Laboratory Results - last 24 hr 10/09/17 10/09/17 10/11/17 05:25 16:19 05:55 WBC RBC Hgb Hct MCV MCH MCHC RDW Plt Count MPV Neut % (Auto) Lymph % (Auto) Tillman % (Auto) Eos % (Auto) Baso % (Auto) Neut # (Auto) Lymph # (Auto) Tillman # (Auto) Eos # (Auto) Baso # (Auto) Sodium 141 Potassium 3.6 Chloride 103 Carbon Dioxide 21 L Anion Gap 21 H BUN 6 L Creatinine 0.5 L Est GFR ( Amer) > 60 Est GFR (Non-Af Amer) > 60 Random Glucose 119 H Calcium 9.0 Ferritin 32.6 Total Bilirubin 0.3 AST 28 ALT 23 Alkaline Phosphatase 69 Total Protein 6.5 Albumin 3.2 L Globulin 3.3 Albumin/Globulin Ratio 1.0 Urine Color Ashley Urine Clarity Cloudy Urine pH 6.0 Ur Specific [place] 1.017 Urine Protein Negative Urine Glucose (UA) Neg Urine Ketones Negative Urine Blood Negative Urine Nitrate Negative Urine Bilirubin Negative Urine Urobilinogen 0.2-1.0 Ur Leukocyte Esterase Neg Urine RBC (Auto) < 1 Urine Microscopic WBC < 1 Ur Squamous Epith Cells < 1 Calcium Oxalate Crystal Many H Urine Bacteria Rare Hepatitis A IgM Ab Negative Hep Bs Antigen Negative Hep B Core IgM Ab Negative Hepatitis C Antibody Negative 10/11/17 05:55 WBC 5.1 RBC 3.35 L Hgb 9.5 L Hct 29.4 L MCV 87.7 MCH 28.3 MCHC 32.3 L RDW 20.5 H Plt Count 566 H MPV 7.9 Neut % (Auto) 43.8 L Lymph % (Auto) 38.6 Tillman % (Auto) 15.4 H Eos % (Auto) 0.6 Baso % (Auto) 1.6 Neut # (Auto) 2.2 Lymph # (Auto) 2.0 Tillman # (Auto) 0.8 Eos # (Auto) 0.0 Baso # (Auto) 0.1 Sodium Potassium Chloride Carbon Dioxide Anion Gap BUN Creatinine Est GFR ( Amer) Est GFR (Non-Af Amer) Random Glucose Calcium Ferritin Total Bilirubin AST ALT Alkaline Phosphatase Total Protein Albumin Globulin Albumin/Globulin Ratio Urine Color Urine Clarity Urine pH Ur Specific [place] Urine Protein Urine Glucose (UA) Urine Ketones Urine Blood Urine Nitrate Urine Bilirubin Urine Urobilinogen Ur Leukocyte Esterase Urine RBC (Auto) Urine Microscopic WBC Ur Squamous Epith Cells Calcium Oxalate Crystal Urine Bacteria Hepatitis A IgM Ab Hep Bs Antigen Hep B Core IgM Ab Hepatitis C Antibody Assessment & Plan (1) History of stroke Assessment and Plan: Start aspirin 81 mg daily for secondary stroke prevention. The appearance of the stroke on MRI is concerning for embolic etiology. I recommend an echocardiogram to evaluate for possible thrombus or valvular disease. Status: Chronic Priority: Medium (2) History of seizure Assessment and Plan: Continue Keppra 500 mg BID for seizure prophylaxis. Thank you. Status: Chronic Priority: Medium
--- NOTE | 2017-10-11 14:33 | MRI ---
PROCEDURE: MRI BRAIN WITH AND WITHOUT CONTRAST HISTORY: Hx of Toxo-Ring Enhancing Lesion COMPARISON: None. TECHNIQUE: Multiplanar, multisequence MR images of the brain were obtained with and without intravenous contrast enhancement (Omniscan 12 cc intravenous). FINDINGS: HEMORRHAGE: None DWI: No evidence of an acute or early subacute infarction. BRAIN PARENCHYMA: Corresponding to an area of subcortical edema at the left frontal lobe laterally in prior head CT 10/08/2017, is a small region under 1 cm size of increased long TR signal and diminished T1 signal which trace ring enhancement associated. While toxoplasmosis infection is a distinct possibility, other infectious possibilities are not excluded as well as inflammatory or even neoplastic etiologies. Neoplasm is unlikely in a 47-year-old. Contrast-enhanced can be associated with ischemia or trauma. There is no restricted diffusion to suggest ischemia. If prior brain cross-sectional imaging exists be for 10/08/2017 for correlation, retrieval of that imaging may be helpful for further characterization. Additional throughout the remainder the brain is normal including core normal cortical medullary differentiation. Posterior fossa contents are unremarkable. Midline brain anatomy is diffusely unremarkable including the corpus callosum. No suspicious extra-axial fluid collection is identified. ENHANCEMENT: No additional abnormal enhancement separate from the left frontal faint ring-enhancing lesion described in the brain parenchyma section. VENTRICLES: Unremarkable. No hydrocephalus. CRANIUM: Unremarkable. ORBITS: Grossly unremarkable. PARANASAL SINUSES/MASTOIDS: Mild bilateral mastoid effusions are identified. Extensive bilateral ethmoid and maxillary sinus disease as well as left frontal sinus. VASCULAR SYSTEM: Skull base flow voids intact. OTHER FINDINGS: None . IMPRESSION: A tiny ring-enhancing lesion is very faintly identified at the area of edema at the left frontal lobe potentially reflecting toxoplasmosis infection in the proper clinical setting. Other etiologies are possible as discussed above with remainder of the brain the brain appearing normal. If prior cross-sectional brain imaging exists for comparison earlier than the CT from 10/08/2017, than retrieval is recommended for comparison and further evaluation.
--- NOTE | 2017-10-11 17:34 | CP.PCM.PN ---
Subjective - Date & Time of Evaluation Date of Evaluation: 10/11/17 Time of Evaluation: 17:32 - Subjective Subjective: I D NOTE MRI BRAIN HAS 1 RING ENHANCING LESION WILL START RX c BACTRIM DS 2 TABS DAILY NO PYRIMETHAMINE IS AVAILABLE HAVE REVIEWED FOR 2 DRUG REGIMENS BUT NO PYREMATHAMINE SUBSTITUTE IS AVAILABLE FOR PRESENT CONTINUE ANTI MAC REGIMEN NEEDS TO START ARV RX CONSIDER GENVOYA OR TRIUMEQ(AWAIT HLA RESULTS Objective - Vital Signs/Intake and Output Vital Signs (last 24 hours): Temp Pulse Resp BP Pulse Ox 98.2 F 79 20 114/68 99 10/11/17 08:31 10/11/17 08:31 10/11/17 08:31 10/11/17 08:31 10/11/17 08:31 - Medications Medications: Current Medications Aspirin (Ecotrin) 81 mg PO DAILY [facility] Last Admin: 10/11/17 16:10 Dose: 81 mg Enoxaparin Sodium (Lovenox) 40 mg SC DAILY KISHAN PRN Reason: Protocol Last Admin: 10/11/17 09:31 Dose: 40 mg Ethambutol HCl (Myambutol) 1,200 mg PO DAILY KISHAN PRN Reason: Protocol Last Admin: 10/11/17 09:31 Dose: 1,200 mg Levetiracetam (Keppra) 500 mg PO Q12 KISHAN Last Admin: 10/11/17 09:30 Dose: 500 mg Moxifloxacin HCl (Avelox) 400 mg PO DAILY KISHAN PRN Reason: Protocol Last Admin: 10/11/17 09:29 Dose: 400 mg Potassium Chloride (K-Dur 20 Meq Er Tab) 20 meq PO DAILY KISHAN Stop: 10/13/17 23:59 Last Admin: 10/11/17 09:30 Dose: 20 meq Rifabutin (Mycobutin) 150 mg PO BID KISHAN PRN Reason: Protocol Last Admin: 10/11/17 16:10 Dose: 150 mg Sulfadiazine (Sulfadiazine) 1,000 mg PO Q6 KISHAN PRN Reason: Protocol Trimethoprim/Sulfamethoxazole (Bactrim Ds Tab) 2 tab PO DAILY KISHAN - Labs Labs: 10/11/17 05:55 10/11/17 05:55 PT 12.7 Seconds (9.8-13.1) 10/08/17 14:15 INR 1.1 (0.9-1.2) 10/08/17 14:15 APTT 29.0 Seconds (25.6-37.1) 10/08/17 14:15
[2017-10-11] MEDS: Tmp-Smz 800 mg-160 mg DS Tab PO SCH (18:10)
--- NOTE | 2017-10-11 18:12 | CARD ---
APPROVED REPORT EXAM: Two-dimensional and M-mode echocardiogram with Doppler and color Doppler. Other Information Quality : GoodRhythm : NSR INDICATION Embolic Stroke 2D DIMENSIONS IVSd0.77 (0.7-1.1cm)LVDd4.49 (3.9-5.9cm) PWd0.70 (0.7-1.1cm)IVSs1.02 (0.8-1.2cm) LVDs2.15 (2.5-4.0cm)FS (%) 52.0 % PWs1.17 (0.8-1.2cm) M-Mode DIMENSIONS Left Atrium (MM)3.03 (2.5-4.0cm)IVSd0.98 (0.7-1.1cm) Aortic Root2.82 (2.2-3.7cm)LVDd4.76 (4.0-5.6cm) Aortic Cusp Exc.2.18 (1.5-2.0cm)PWd0.80 (0.7-1.1cm) IVSs1.29 cmFS (%) 47 % LVDs2.52 (2.0-3.8cm)PWs1.31 cm Mitral Valve MV E Qftttswj98.2cm/sMV DECEL EANS989lrBF A Qhsxvvmw16.5cm/s MV AKW08tjW/A ratio1.0MVA (PHT)3.21cm2 TDI Lateral E' Peak V17.70cm/sMedial E' Peak V7.90cm/sE/Lateral E'2.6 E/Medial E'5.7 LEFT VENTRICLE The left ventricle is normal in size. There is normal left ventricular wall thickness. The left ventricular function is normal. The left ventricular ejection fraction is - 70%. There is normal LV segmental wall motion. Transmitral Doppler flow pattern is abnormal. No left ventricle thrombus noted on this study. There is no ventricular septal defect visualized. There is no left ventricular aneurysm. There is no mass noted in the left ventricle. RIGHT VENTRICLE The right ventricle is normal size. There is normal right ventricular wall thickness. The right ventricular systolic function is normal. ATRIA The left atrium size is normal. There is no thrombus suspected in the left atrium. The right atrium size is normal. The interatrial septum is intact with no evidence for an atrial septal defect. AORTIC VALVE The aortic valve is normal in structure. No aortic regurgitation is present. There is no aortic valvular stenosis. MITRAL VALVE The mitral valve is normal in structure. There is no evidence of mitral valve prolapse. There is no mitral valve stenosis. There is no mitral valve regurgitation noted. TRICUSPID VALVE The tricuspid valve is normal in structure. There is trace tricuspid regurgitation. There is no tricuspid valve prolapse or vegetation. There is no tricuspid valve stenosis. PULMONIC VALVE The pulmonic valve is not well visualized. There is no pulmonic valvular regurgitation. GREAT VESSELS The aortic root is normal in size. The IVC is normal in size and collapses >50% with inspiration. PERICARDIAL EFFUSION The pericardium appears normal. There is no pleural effusion. <Conclusion> The left ventricle is normal in size and wall thickness. The left ventricular function is normal. The left ventricular ejection fraction is - 70%. The left atrium, right ventricle and right atrium are normal in size. The mitral, aortic and tricuspid valves are normal. No thrombi were seen in the left atrium or left ventricle.
[2017-10-12] MEDS: Tmp-Smz 800 mg-160 mg DS Tab PO SCH (09:14)
[2017-10-12] MEDS: Potassium Chloride 20 mEq ER Tab PO SCH (09:15)
[2017-10-12] MEDS: Enoxaparin 40 mg Syringe SC SCH (09:15)
--- NOTE | 2017-10-12 11:20 | CP.PCM.PN ---
Subjective - Date & Time of Evaluation Date of Evaluation: 10/12/17 Time of Evaluation: 11:12 - Subjective Subjective: Patient seen and examined this morning at bedside, pt with no complaints at this time. No overnight events. Mild wet cough, white sputum sometimes. She denies sob, headache, weakness, dyspnea, chills, chest pain, abdominal pain, nausea, or vomiting. Afebrile. 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 Last admission due to erosive esophagitis and colitis. Ring enhancing lesion on L frontal lobe have been present since June 2017. No evidence of recent MAC infection appreciated. Objective - Vital Signs/Intake and Output Vital Signs (last 24 hours): Temp Pulse Resp BP Pulse Ox 97.8 F 81 18 117/82 97 10/12/17 08:22 10/12/17 08:22 10/12/17 08:22 10/12/17 08:22 10/12/17 08:22 - Medications Medications: Current Medications Aspirin (Ecotrin) 81 mg PO DAILY [facility] Last Admin: 10/12/17 09:15 Dose: 81 mg Enoxaparin Sodium (Lovenox) 40 mg SC DAILY KISHAN PRN Reason: Protocol Last Admin: 10/12/17 09:15 Dose: 40 mg Ethambutol HCl (Myambutol) 1,200 mg PO DAILY [facility] PRN Reason: Protocol Last Admin: 10/12/17 09:15 Dose: 1,200 mg Levetiracetam (Keppra) 500 mg PO Q12 [facility] Last Admin: 10/12/17 09:15 Dose: 500 mg Moxifloxacin HCl (Avelox) 400 mg PO DAILY [facility] PRN Reason: Protocol Last Admin: 10/12/17 09:14 Dose: 400 mg Potassium Chloride (K-Dur 20 Meq Er Tab) 20 meq PO DAILY [facility] Stop: 10/13/17 23:59 Last Admin: 10/12/17 09:15 Dose: 20 meq Rifabutin (Mycobutin) 150 mg PO BID KISHAN PRN Reason: Protocol Last Admin: 10/12/17 09:16 Dose: 150 mg Sulfadiazine (Sulfadiazine) 1,000 mg PO Q6 KISHAN PRN Reason: Protocol Last Admin: 10/12/17 09:16 Dose: 1,000 mg Trimethoprim/Sulfamethoxazole (Bactrim Ds Tab) 2 tab PO DAILY KISHAN Last Admin: 10/12/17 09:14 Dose: 2 tab - Labs Labs: 10/11/17 05:55 10/11/17 05:55 PT 12.7 Seconds (9.8-13.1) 10/08/17 14:15 INR 1.1 (0.9-1.2) 10/08/17 14:15 APTT 29.0 Seconds (25.6-37.1) 10/08/17 14:15 - Constitutional Appears: No Acute Distress - Eye Exam Eye Exam: EOMI, PERRL. absent: Nystagmus, Scleral icterus - ENT Exam ENT Exam: Mucous Membranes Moist - Respiratory Exam Respiratory Exam: Clear to Ausculation Bilateral, NORMAL BREATHING PATTERN. absent: Rales, Wheezes - Cardiovascular Exam Cardiovascular Exam: REGULAR RHYTHM, +S1, +S2. absent: Tachycardia, Murmur - GI/Abdominal Exam GI & Abdominal Exam: Soft, Normal Bowel Sounds. absent: Distended, Tenderness - Extremities Exam Extremities Exam: absent: Calf Tenderness - Neurological Exam Neurological Exam: Alert, Awake, CN II-XII Intact, Oriented x3 - Psychiatric Exam Psychiatric exam: Normal Affect - Skin Skin Exam: Dry, Warm Assessment and Plan - Assessment and Plan (Free Text) Assessment: 47 yo female patient with HIV/AIDS admitted for weight loss, anorexia, and suspected MAC infection awaiting cultures. Plan: 1- HIV/AIDS with suspected MAC infection - Continue Isolation precautions - f/u CD4 - HIV viral load 2.94 (elevated) - Mycobacteria PCR pending. - Mycobacteria CX, stain negative - blood cx negative, urine cx negative, and stool cx negative. - ID on board Dr Atkinson, recs appreciated. - c/w ethambutol 1200 mg PO daily - c/w rifabutin 150 mg PO BID - c/w avelox 400 mg PO daily - CMV IgG & IgM, Toxoplasmosis IgG & IgM, HLA-B57- pending - Brain MRI w/wo: tiny ring-enhacing lesion very faintly identified at the area of edema on L frontal lobe potentially reflecting toxoplasmosis infection. - c/w Bactrim DS PO BID - Will consider starting LOPEZ therapy 2- Anemia, stable, normocytic - MCV wnl, RDW elevated - Iron 47, TIBC 283, %sat 16 (low), ferritin 32.6 3- Thrombocytosis - likely reactive 2/2 to infection - will monitor. 4-H/O stroke - Head CT 10/08: cortical loss at solitary gyrus on L frontal lobe reflecting prior local infarct or insult. Remainder brain is normal. - Neuro Dr Forest perez appreciated: - start ASA 81 mg daily - Echo r/o possible embolic cause of stroke (valvular disease) - c/w keppra 500 mg Q12H 5- DVT prophylaxis - lovenox 40mg SC daily
[2017-10-12 12:04] LABS: % CD4 (T HELPER CELL) 33 Percent (30-61); % CD8 (SUPPRESSOR T CELL) 51 Percent (12-42); ABSOLUTE CD4 CELLS 450 Cells/mcL (490-1740); ABSOLUTE CD8 CELLS 688 Cells/mcL (180-1170); ABSOLUTE LYMPHOCYTES 1348 Cells/mcL (850-3900); HELPER/SUPPRESSOR RATIO 0.65 Ratio (0.86-5.00)
[2017-10-13 06:40] LABS: BASO # 0.1 K/uL (0.0-0.2); EOS % 0.7 % (0.0-4.0); LYMPH # 1.6 K/uL (1.0-4.3); LYMPH % 34.5 % (20.0-40.0); MEAN CORPUSCULAR HEMOGLOBIN 27.4 pg (27.0-31.0); MEAN CORPUSCULAR HGB CONC 31.5 g/dL (33.0-37.0); MEAN PLATELET VOLUME 7.9 fl (7.2-11.7); MONO % 20.7 % (0.0-10.0); NEUT % 42.1 % (50.0-75.0); NRBC % 0.2 % (0.0-0.0); PLATELET COUNT 513 K/uL (130-400); RBC 3.29 Mil/uL (3.80-5.20); RED CELL DISTRIBUTION WIDTH 20.3 % (11.5-14.5); WHITE BLOOD COUNT 4.6 K/uL (4.8-10.8)
[2017-10-13 06:53] LABS: ALB/GLOB RATIO 0.9 (1.0-2.1); ALBUMIN 2.9 g/dL (3.5-5.0); ALT/SGPT 29 U/L (9-52); AST/SGOT 26 U/L (14-36); BLOOD UREA NITROGEN 4 mg/dl (7-17); CALCIUM 8.7 mg/dL (8.4-10.2); GFR AFRICAN-AMERICAN > 60; GFR NON-AFRICAN AMERICAN > 60
[2017-10-13 09:20] LABS: BANDS 1 % (0-2); BASOPHIL 1 % (0-2); LYMPHOCYTE 37 % (20-50); MONOCYTE 20 % (0-10); NEUTROPHIL 41 % (42-75); PLATELET ESTIMATE INCREASED (NORMAL); TOTAL CELLS COUNTED 100
[2017-10-13 09:21] LABS: HYPOCHROMIC SLIGHT
[2017-10-13 09:22] LABS: OVALOCYTES SLIGHT
[2017-10-13] MEDS: Tmp-Smz 800 mg-160 mg DS Tab PO SCH (09:27)
[2017-10-13] MEDS: Potassium Chloride 20 mEq ER Tab PO SCH (09:28)
[2017-10-13] MEDS: Enoxaparin 40 mg Syringe SC SCH (09:29)
--- NOTE | 2017-10-13 13:11 | CP.PCM.PN ---
Subjective - Date & Time of Evaluation Date of Evaluation: 10/13/17 Time of Evaluation: 13:06 - Subjective Subjective: Patient seen and examined this morning at bedside during rounding. No overnight events. Denies cough, white sputum sometimes. She denies sob, headache , weakness, dyspnea, chills, chest pain, abdominal pain, nausea, or vomiting. Afebrile. Objective - Vital Signs/Intake and Output Vital Signs (last 24 hours): Temp Pulse Resp BP Pulse Ox 98.3 F 60 18 105/65 99 10/13/17 08:01 10/13/17 08:01 10/13/17 08:01 10/13/17 08:01 10/13/17 08:01 - Medications Medications: Current Medications Aspirin (Ecotrin) 81 mg PO DAILY [facility] Last Admin: 10/13/17 09:28 Dose: 81 mg Enoxaparin Sodium (Lovenox) 40 mg SC DAILY [facility] PRN Reason: Protocol Last Admin: 10/13/17 09:29 Dose: 40 mg Ethambutol HCl (Myambutol) 1,200 mg PO DAILY [facility]AN PRN Reason: Protocol Last Admin: 10/13/17 09:30 Dose: 1,200 mg Levetiracetam (Keppra) 500 mg PO Q12 [facility] Last Admin: 10/13/17 09:29 Dose: 500 mg Moxifloxacin HCl (Avelox) 400 mg PO DAILY [facility] PRN Reason: Protocol Last Admin: 10/13/17 09:26 Dose: 400 mg Potassium Chloride (K-Dur 20 Meq Er Tab) 20 meq PO DAILY [facility] Stop: 10/13/17 23:59 Last Admin: 10/13/17 09:28 Dose: 20 meq Rifabutin (Mycobutin) 150 mg PO BID [facility]AN PRN Reason: Protocol Last Admin: 10/13/17 09:30 Dose: 150 mg Sulfadiazine (Sulfadiazine) 1,000 mg PO Q6 K[facility]AN PRN Reason: Protocol Last Admin: 10/13/17 09:31 Dose: 1,000 mg Trimethoprim/Sulfamethoxazole (Bactrim Ds Tab) 2 tab PO DAILY [facility] Last Admin: 10/13/17 09:27 Dose: 2 tab - Labs Labs: 10/13/17 05:45 10/13/17 05:45 PT 12.7 Seconds (9.8-13.1) 10/08/17 14:15 INR 1.1 (0.9-1.2) 10/08/17 14:15 APTT 29.0 Seconds (25.6-37.1) 10/08/17 14:15 - Constitutional Appears: No Acute Distress - Head Exam Head Exam: NORMAL INSPECTION - ENT Exam ENT Exam: Mucous Membranes Moist - Respiratory Exam Respiratory Exam: Clear to Ausculation Bilateral, NORMAL BREATHING PATTERN - Cardiovascular Exam Cardiovascular Exam: REGULAR RHYTHM, +S1, +S2 - GI/Abdominal Exam GI & Abdominal Exam: Soft, Normal Bowel Sounds. absent: Distended, Tenderness - Extremities Exam Extremities Exam: absent: Calf Tenderness - Neurological Exam Neurological Exam: Awake, Oriented x3 - Skin Skin Exam: Dry, Warm Assessment and Plan - Assessment and Plan (Free Text) Assessment: 47 yo female patient with HIV/AIDS admitted for weight loss, anorexia, and suspected MAC. 2 cultures negatives, CMV and toxoplasma IgM negative. CD4 count 450. Plan: 1- HIV/AIDS with suspected MAC infection - Continue Isolation precautions - CD4 450 - HIV viral load 2.94 (elevated) - Mycobacteria PCR pending. - ID on board Dr Atkinson, recs appreciated. - c/w ethambutol 1200 mg PO daily - c/w rifabutin 150 mg PO BID - c/w avelox 400 mg PO daily - CMV IgM and Toxoplasmosis IgM negative - HLA-B57- pending - Brain MRI w/wo: tiny ring-enhacing lesion very faintly identified at the area of edema on L frontal lobe potentially reflecting toxoplasmosis infection. - c/w Bactrim DS PO BID - Will consider starting LOPEZ therapy after HLA results 2- Anemia, stable, normocytic - MCV wnl, RDW elevated - Iron 47, TIBC 283, %sat 16 (low), ferritin 32.6 3- Thrombocytosis - likely reactive 2/2 to infection - will monitor. 4-H/O stroke - Head CT 10/08: cortical loss at solitary gyrus on L frontal lobe reflecting prior local infarct or insult. Remainder brain is normal. - Neuro Dr Garg recs appreciated: - start ASA 81 mg daily - Echo r/o possible embolic cause of stroke (valvular disease) - c/w keppra 500 mg Q12H 5- DVT prophylaxis - lovenox 40mg SC daily
[2017-10-13 15:49] VITALS: RESP 20
[2017-10-14 08:10] VITALS: BP 101/70; PULSE 102; TEMP 98.5; O2SAT 97
[2017-10-14] MEDS: Enoxaparin 40 mg Syringe SC SCH (10:17)
[2017-10-14] MEDS: Tmp-Smz 800 mg-160 mg DS Tab PO SCH (10:17)
--- NOTE | 2017-10-14 10:28 | CP.PCM.PN ---
Subjective - Date & Time of Evaluation Date of Evaluation: 10/14/17 Time of Evaluation: 10:24 - Subjective Subjective: Patient seen and examined this morning at bedside during rounding. No overnight events. Denies cough, white sputum sometimes. She denies sob, headache , weakness, dyspnea, chills, chest pain, abdominal pain, nausea, or vomiting. Afebrile. Objective - Vital Signs/Intake and Output Vital Signs (last 24 hours): Temp Pulse Resp BP Pulse Ox 98.5 F 102 H 20 101/70 97 10/14/17 08:09 10/14/17 08:09 10/14/17 08:09 10/14/17 08:09 10/14/17 08:09 - Medications Medications: Current Medications Aspirin (Ecotrin) 81 mg PO DAILY [facility] Last Admin: 10/14/17 10:17 Dose: 81 mg Enoxaparin Sodium (Lovenox) 40 mg SC DAILY [facility] PRN Reason: Protocol Last Admin: 10/14/17 10:17 Dose: 40 mg Ethambutol HCl (Myambutol) 1,200 mg PO DAILY [facility] PRN Reason: Protocol Last Admin: 10/14/17 10:18 Dose: 1,200 mg Levetiracetam (Keppra) 500 mg PO Q12 [facility] Last Admin: 10/14/17 10:17 Dose: 500 mg Moxifloxacin HCl (Avelox) 400 mg PO DAILY [facility] PRN Reason: Protocol Last Admin: 10/14/17 10:16 Dose: 400 mg Rifabutin (Mycobutin) 150 mg PO BID K[facility] PRN Reason: Protocol Last Admin: 10/14/17 10:19 Dose: 150 mg Sulfadiazine (Sulfadiazine) 1,000 mg PO Q6 KISHAN PRN Reason: Protocol Last Admin: 10/14/17 10:19 Dose: 1,000 mg Trimethoprim/Sulfamethoxazole (Bactrim Ds Tab) 2 tab PO DAILY [facility] Last Admin: 10/14/17 10:17 Dose: 2 tab - Labs Labs: 10/13/17 05:45 10/13/17 05:45 PT 12.7 Seconds (9.8-13.1) 10/08/17 14:15 INR 1.1 (0.9-1.2) 10/08/17 14:15 APTT 29.0 Seconds (25.6-37.1) 10/08/17 14:15 - Constitutional Appears: No Acute Distress - Head Exam Head Exam: NORMAL INSPECTION - Eye Exam Eye Exam: EOMI, PERRL - Respiratory Exam Respiratory Exam: Clear to Ausculation Bilateral, NORMAL BREATHING PATTERN - Cardiovascular Exam Cardiovascular Exam: REGULAR RHYTHM. absent: Tachycardia - GI/Abdominal Exam GI & Abdominal Exam: Soft, Normal Bowel Sounds. absent: Distended, Tenderness - Extremities Exam Extremities Exam: absent: Calf Tenderness - Neurological Exam Neurological Exam: Awake, Oriented x3 - Skin Skin Exam: Dry, Warm Assessment and Plan - Assessment and Plan (Free Text) Assessment: 47 yo female patient with HIV/AIDS admitted for weight loss, anorexia, and suspected MAC. 3 cultures negatives, CMV and toxoplasma IgM negative. CD4 count 450. D/C isolation. Plan: 1- HIV/AIDS with suspected MAC infection - d/c Isolation precautions - CD4 450 - HIV viral load 2.94 - ID on board chris Aragon appreciated. - c/w ethambutol 1200 mg PO daily - c/w rifabutin 150 mg PO BID - c/w avelox 400 mg PO daily - Brain MRI w/wo: tiny ring-enhacing lesion very faintly identified at the area of edema on L frontal lobe potentially reflecting toxoplasmosis infection. - c/w Bactrim DS PO BID - HLA-B57- pending - Will consider starting LOPEZ therapy after HLA results 2- Anemia, stable, normocytic - MCV wnl, RDW elevated - Iron 47, TIBC 283, %sat 16 (low), ferritin 32.6 3- Thrombocytosis - likely reactive 2/2 to infection - will monitor. 4-H/O stroke - Head CT 10/08: cortical loss at solitary gyrus on L frontal lobe reflecting prior local infarct or insult. Remainder brain is normal. - Neuro Dr Garg recrobert appreciated: - start ASA 81 mg daily - c/w keppra 500 mg Q12H 5- DVT prophylaxis - lovenox 40mg SC daily
--- NOTE | 2017-10-14 12:40 | CP.PCM.DIS ---
Provider - Provider Date of Admission: 10/08/17 13:37 Attending physician: Patricia Villasenor MD Consults: ID: Dr Matthieu Atkinson Neuro: Dr Reji Garg Time Spent in preparation of Discharge (in minutes): 30 Diagnosis - Discharge Diagnosis (1) HIV (human immunodeficiency virus infection) Status: Chronic (2) History of stroke Status: Chronic Priority: Medium (3) History of seizure Status: Chronic Priority: Medium Hospital Course - Lab Results Lab Results: Micro Results 10/08/17 14:15 Blood-Venous Blood Culture - Final NO GROWTH AFTER 5 DAYS 10/08/17 14:15 Blood-Venous Blood Culture - Final NO GROWTH AFTER 5 DAYS 10/12/17 08:58 Other: Please Indicate Mycobacterial Culture - Preliminary 10/10/17 08:30 Other: Please Indicate Mycobacterial Culture - Preliminary 10/08/17 09:10 Stool Stool Culture - Final NO SALMONELLA, SHIGELLA OR CAMPYLOBACTER ISOLATED. 10/08/17 15:41 Urine,Clean Catch Urine Culture - Final No Growth (<1,000 CFU/ML) 10/08/17 14:15 Other: Please Indicate Mycobacterial Culture - Preliminary 10/08/17 14:15 Other: Please Indicate Mycobacterial Culture - Preliminary Most Recent Lab Values WBC 4.6 K/uL (4.8-10.8) L 10/13/17 05:45 RBC 3.29 Mil/uL (3.80-5.20) L 10/13/17 05:45 Hgb 9.0 g/dL (12.0-16.0) L 10/13/17 05:45 Hct 28.6 % (34.0-47.0) L 10/13/17 05:45 MCV 87.0 fl (81.0-99.0) 10/13/17 05:45 MCH 27.4 pg (27.0-31.0) 10/13/17 05:45 MCHC 31.5 g/dL (33.0-37.0) L 10/13/17 05:45 RDW 20.3 % (11.5-14.5) H 10/13/17 05:45 Plt Count 513 K/uL (130-400) H 10/13/17 05:45 MPV 7.9 fl (7.2-11.7) 10/13/17 05:45 Neut % (Auto) 42.1 % (50.0-75.0) L 10/13/17 05:45 Lymph % (Auto) 34.5 % (20.0-40.0) 10/13/17 05:45 [place] % (Auto) 20.7 % (0.0-10.0) H 10/13/17 05:45 Eos % (Auto) 0.7 % (0.0-4.0) 10/13/17 05:45 Baso % (Auto) 2.0 % (0.0-2.0) 10/13/17 05:45 Neut # (Auto) 2.0 K/uL (1.8-7.0) 10/13/17 05:45 Lymph # (Auto) 1.6 K/uL (1.0-4.3) 10/13/17 05:45 [place] # (Auto) 1.0 K/uL (0.0-0.8) H 10/13/17 05:45 Eos # (Auto) 0.0 K/uL (0.0-0.7) 10/13/17 05:45 Baso # (Auto) 0.1 K/uL (0.0-0.2) 10/13/17 05:45 Neutrophils % (Manual) 41 % (42-75) L 10/13/17 05:45 Band Neutrophils % 1 % (0-2) 10/13/17 05:45 Lymphocytes % (Manual) 37 % (20-50) 10/13/17 05:45 Monocytes % (Manual) 20 % (0-10) H 10/13/17 05:45 Basophils % (Manual) 1 % (0-2) 10/13/17 05:45 Platelet Estimate Increased (NORMAL) H 10/13/17 05:45 Hypochromasia (manual) Slight 10/13/17 05:45 Ovalocytes Slight 10/13/17 05:45 PT 12.7 Seconds (9.8-13.1) 10/08/17 14:15 INR 1.1 (0.9-1.2) 10/08/17 14:15 APTT 29.0 Seconds (25.6-37.1) 10/08/17 14:15 pO2 42 mm/Hg (30-55) 10/08/17 15:37 VBG pH 7.44 (7.32-7.43) H 10/08/17 15:37 VBG pCO2 45 mmHg (40-60) 10/08/17 15:37 VBG HCO3 28.8 mmol/L 10/08/17 15:37 VBG Total CO2 32.0 mmol/L (22-28) H 10/08/17 15:37 VBG O2 Sat (Calc) 68.9 % (40-65) H 10/08/17 15:37 VBG Base Excess 5.6 mmol/L (0.0-2.0) H 10/08/17 15:37 VBG Potassium 3.6 mmol/L (3.6-5.2) 10/08/17 15:37 Sodium 140.0 mmol/L (132-148) 10/08/17 15:37 Chloride 109.0 mmol/L (98-107) H 10/08/17 15:37 Glucose 94 mg/dL (65-105) 10/08/17 15:37 Lactate 1.0 mmol/L (0.7-2.1) 10/08/17 15:37 FiO2 21.0 % 10/08/17 15:37 Sodium 138 mmol/l (132-148) 10/13/17 05:45 Potassium 4.1 MMOL/L (3.6-5.0) 10/13/17 05:45 Chloride 104 mmol/L (98-107) 10/13/17 05:45 Carbon Dioxide 22 mmol/L (22-30) 10/13/17 05:45 Anion Gap 16 (10-20) 10/13/17 05:45 BUN 4 mg/dl (7-17) L 10/13/17 05:45 Creatinine 0.5 mg/dl (0.7-1.2) L 10/13/17 05:45 Est GFR ( Amer) > 60 10/13/17 05:45 Est GFR (Non-Af Amer) > 60 10/13/17 05:45 Random Glucose 91 mg/dL (65-105) 10/13/17 05:45 Calcium 8.7 mg/dL (8.4-10.2) 10/13/17 05:45 Iron 47 ug/dL (37-170) 10/10/17 05:30 TIBC 283 ug/dL (250-450) 10/10/17 05:30 % Saturation 16 % (20-55) L 10/10/17 05:30 Ferritin 32.6 ng/Ml (6.24-137.0) 10/11/17 05:55 Total Bilirubin 0.2 mg/dl (0.2-1.3) 10/13/17 05:45 AST 26 U/L (14-36) 10/13/17 05:45 ALT 29 U/L (9-52) 10/13/17 05:45 Alkaline Phosphatase 69 U/L (38-126) 10/13/17 05:45 Total Protein 6.1 G/DL (6.3-8.2) L 10/13/17 05:45 Albumin 2.9 g/dL (3.5-5.0) L 10/13/17 05:45 Globulin 3.2 gm/dL (2.2-3.9) 10/13/17 05:45 Albumin/Globulin Ratio 0.9 (1.0-2.1) L 10/13/17 05:45 Triglycerides 98 mg/DL (0-149) 10/09/17 05:25 Cholesterol 160 mg/dL (0-199) 10/09/17 05:25 LDL Cholesterol Direct 116 mg/dL (0-129) 10/09/17 05:25 HDL Cholesterol 25 MG/DL (30-70) L 10/09/17 05:25 TSH 3rd Generation 0.50 mIU/ML (0.46-4.68) 10/09/17 05:25 Venous Blood Potassium 3.6 mmol/L (3.6-5.2) 10/08/17 15:37 Urine Color [place] (YELLOW) 10/09/17 16:19 Urine Clarity Cloudy (Clear) 10/09/17 16:19 Urine pH 6.0 (5.0-8.0) 10/09/17 16:19 Ur Specific [place] 1.017 (1.003-1.030) 10/09/17 16:19 Urine Protein Negative mg/dL (NEGATIVE) 10/09/17 16:19 Urine Glucose (UA) Neg mg/dL (Normal) 10/09/17 16:19 Urine Ketones Negative mg/dL (NEGATIVE) 10/09/17 16:19 Urine Blood Negative (NEGATIVE) 10/09/17 16:19 Urine Nitrate Negative (NEGATIVE) 10/09/17 16:19 Urine Bilirubin Negative (NEGATIVE) 10/09/17 16:19 Urine Urobilinogen 0.2-1.0 mg/dL (0.2-1.0) 10/09/17 16:19 Ur Leukocyte Esterase Neg [place]/uL (Negative) 10/09/17 16:19 Urine RBC (Auto) < 1 /hpf (0-3) 10/09/17 16:19 Urine Microscopic WBC < 1 /hpf (0-5) 10/09/17 16:19 Ur Squamous Epith Cells < 1 /hpf (0-5) 10/09/17 16:19 Calcium Oxalate Crystal Many /hpf (<OCC) H 10/09/17 16:19 Urine Bacteria Rare (<OCC) 10/09/17 16:19 Absolute Lymphs (Flow) 1348 Cells/mcL (850-3900) 10/08/17 12:10 % CD4 Cells 33 Percent (30-61) 10/08/17 12:10 Absolute CD4 Count 450 Cells/mcL (490-1740) L 10/08/17 12:10 T-Help/Suppress Ratio 0.65 Ratio (0.86-5.00) L 10/08/17 12:10 % CD8 Cells 51 Percent (12-42) H 10/08/17 12:10 Absolute CD8 Count 688 Cells/mcL (180-1170) 10/08/17 12:10 CMV IgG Ab >10.00 U/mL H 10/10/17 17:33 CMV IgM Ab <30.00 AU/mL 10/10/17 17:33 Hepatitis A IgM Ab Negative (NEGATIVE) 10/09/17 05:25 Hep Bs Antigen Negative (NEGATIVE) 10/09/17 05:25 Hep B Core IgM Ab Negative (NEGATIVE) 10/09/17 05:25 Hepatitis C Antibody Negative (NEGATIVE) 10/09/17 05:25 HIV-1 RNA Qnt (RT-PCR) 2.91 (Not Detected) H 10/10/17 17:33 Toxoplasma IgG Ab 65.20 IU/mL H 10/10/17 16:00 Toxoplasma IgM Ab <8.00 AU/mL 10/10/17 16:00 - Hospital Course Hospital Course: 47 y/o female with history of HIV and stroke and seizure disorder admitted due to suspected MAC. Patient with HIV hx for more than 15 years not on medications for 4 years. Patient with previous multiples admissions on [facility], last was 2 weeks ago due to colitis. Patient with h/o Toxoplasma and CMV infections. ID and Neuro were on board during admission, Echo negative, brain MRI : old ring enhanced lesion noted, as well as old infarction on L frontal lobe. Stool, urine and blood cultures negatives. Mycobacterial cx negative x3. Patient asymptomatic and stable at discharge time. Sripts provided: Bactrim, ethambutol , avelox, rifabutin, keppra and aspirin. f/u appt with Dr Gan on October 23 at 2 pm at [facility]. CD4 450 CMV and toxoplasma IgM negative, IgG positive hepatitis panel negative HLA B57 pending. Discharge Exam - Additional Findings Additional findings: see PE on note from 10/14/2017 Discharge Plan - Discharge Medications Prescriptions: Aspirin [Ecotrin] 81 mg PO DAILY 30 Days #30 tabec Ethambutol [Myambutol] 1,200 mg PO DAILY 30 Days #90 tab levETIRAcetam [Keppra] 500 mg PO Q12 30 Days #60 tab Moxifloxacin [Avelox] 400 mg PO DAILY 30 Days #30 tab Rifabutin [Mycobutin] 150 mg PO BID 30 Days #60 cap Sulfamethoxazole/Trimethoprim [Bactrim DS Tab] 2 tab PO DAILY 30 Days #60 tab - Follow Up Plan Condition: STABLE Disposition: HOME/ ROUTINE Instructions: HIV/AIDS (DC) Additional Instructions: APPOINTMENT WITH DR. GAN AT [facility] [address] ON October 2 P.M. [phone] GAN EN [facility] [address] EL 2 P.M. [phone] Referrals: Reji Garg MD [Medical Doctor] - Ramana Gan MD [Staff Provider] -
== END 2017-10-14 14:30 | disposition home or self-care (01) | DRG 977 ==
LOC: H.ER 12:30 → H.ERHOLD 13:37 → H.MEDSURG1 16:32
PROVIDERS: ADMIT Family Medicine Geriatric Medicine; ATTEND Family Medicine Geriatric Medicine
DX: B20 Human immunodeficiency virus [HIV] disease (principal); A31.0 Pulmonary mycobacterial infection; K22.10 Ulcer of esophagus without bleeding; G40.909 Epilepsy, unspecified, not intractable, without status epilepticus; Z86.73 Personal history of transient ischemic attack (TIA), and cerebral infarction without residual deficits; Z79.899 Other long term (current) drug therapy; R63.0 Anorexia; D64.9 Anemia, unspecified; D47.3 Essential (hemorrhagic) thrombocythemia; E87.6 Hypokalemia; K52.9 Noninfective gastroenteritis and colitis, unspecified; Z87.01 Personal history of pneumonia (recurrent)